=== PATIENT | male | born 1990 | race Caucasian/White ===

== ENCOUNTER 2017-01-11 20:56 | Emergency (ER) | payer SELFPAY ==
[~2017-01-11] VITALS: Ht 182.8 cm; Wt 102.1 kg
[~2017-01-11 20:56] MED LIST: BACTRIM DS 8001 TA1 PO; MOTRIN800 MG PO
== END 2017-01-11 22:04 | disposition home or self-care (01) ==
LOC: ED 20:56
DX: M77.9 Enthesopathy, unspecified (principal); F12.10 Cannabis abuse, uncomplicated

== ENCOUNTER 2017-02-27 23:58 | Emergency (ER) | payer MEDICAID | END 2017-02-28 01:36 | disposition home or self-care (01) | LOC: ED 23:58 | DX: S90.212A Contusion of left great toe with damage to nail, initial encounter (principal); W20.8XXA Other cause of strike by thrown, projected or falling object, initial encounter; Y93.89 Activity, other specified; Y92.89 Other specified places as the place of occurrence of the external cause; Y99.8 Other external cause status ==

== ENCOUNTER 2017-07-27 12:44 | Emergency (ER) | payer OTHER ==
[~2017-07-27] VITALS: Ht 182.8 cm; Wt 111.1 kg
[2017-07-27 13:10] LABS: BASO % 0.6 % (0.0-1.0); EOS % 0.8 % (1.0-4.0); HEMATOCRIT 42.3 % (42.0-52.0); HEMOGLOBIN 14.8 g/dl (14.0-18.0); LYMPH # 1.5 10*3/uL (1.3-4.4); LYMPH % 30.7 % (27.0-41.0); MEAN CELL VOLUME 87.2 fl (80.0-94.0); MEAN CORPUSCULAR HGB 30.5 pg (27.0-31.0); MONO # 0.3 10*3/uL (0.1-1.0); MONO % 6.6 % (3.0-9.0); NEUT # 2.9 10*3/uL (2.3-7.9); NEUT % 61.1 % (47.0-73.0); PLATELET COUNT AUTOMATED 220 10*3/uL (130-400); RED BLOOD COUNT 4.85 10*6/uL (4.50-5.90); RED CELL DISTRI WIDTH 11.5 % (0-14.5); WHITE BLOOD COUNT 4.7 10*3/uL (4.8-10.8)
[2017-07-27 13:21] LABS: ACT PARTIAL THROMBO TIME 27.1 SECONDS (20.8-31.5)
[2017-07-27 13:27] LABS: ALBUMIN 3.9 gm/dl (3.1-4.5); ALKALINE PHOSPHATASE 61 U/L (45-117); BUN 8 mg/dl (7-24); CHLORIDE 105 mmol/L (98-107); CREATININE 0.88 mg/dL (0.70-1.30); POTASSIUM 3.8 mmol/L (3.5-5.1); SGOT/AST 28 IU/L (3-35); SGPT/ALT 63 U/L (12-78); SODIUM 140 mmol/L (136-145); TOTAL PROTEIN 7.2 gm/dL (6.4-8.2)
[2017-07-27 13:33] LABS: TROPONIN I < 0.015 ng/ml (<0.045)
[2017-07-27 14:13] LABS: BILIRUBIN NEGATIVE (NEGATIVE); BLOOD NEGATIVE (NEGATIVE); CLARITY CLEAR (CLEAR); COLOR YELLOW (YELLOW); GLUCOSE NEGATIVE (NEGATIVE); KETONE NEGATIVE (NEGATIVE); LEUKO ESTERASE NEGATIVE (NEGATIVE); NITRITE NEGATIVE (NEGATIVE); SPECIFIC GRAVITY 1.015 (1.005-1.030); UROBILINOGEN 0.2 E.U./dl (0.2-1.0)
[2017-07-27 14:24] LABS: URINE AMPHETAMINES < 1000 (1000ng/ml); URINE BARBITURATES < 200 (200ng/ml); URINE BENZODIAZEPINES < 200 (200ng/ml); URINE CANNABINOIDS (THC) > 50 (50ng/ml); URINE COCAINE < 300 (300ng/ml); URINE METHADONE < 300 (300ng/ml); URINE OPIATES < 300 (300ng/ml)
[2017-07-27 14:28] LABS: URINE PHENCYCLIDINE < 25 (25ng/ml)
[2017-07-27 14:30] LABS: WBC 0-2 wbc/hpf (0-5)
== END 2017-07-27 14:44 | disposition home or self-care (01) ==
LOC: ED 12:44
PROVIDERS: Emergency Medicine
DX: R07.89 Other chest pain (principal)

== ENCOUNTER → 2019-02-08 | Outpatient (CLI) | payer OTHER ==
[~2019-02-08] MED LIST changes: +AUGMENTIN 875875 MG PO; +NORCO 5-325 TA1 EACH PO
== END | disposition home or self-care (01) ==
LOC: US 08:45
DX: R94.5 Abnormal results of liver function studies (principal); B19.20 Unspecified viral hepatitis C without hepatic coma

== ENCOUNTER 2019-02-12 16:34 | Emergency (ER) | payer OTHER ==
[~2019-02-12] VITALS: Ht 182.8 cm; Wt 111.1 kg
[~2019-02-12 16:34] MED LIST changes: -AUGMENTIN 875875 MG PO; -NORCO 5-325 TA1 EACH PO
[2019-02-12 17:21] LABS: BASO % 0.1 % (0.0-1.0); HEMATOCRIT 43.6 % (42.0-52.0); LYMPH # 1.2 10*3/uL (1.3-4.4); LYMPH % 11.5 % (27.0-41.0); MEAN CELL VOLUME 89.9 fl (80.0-94.0); MEAN CORPUSCULAR HGB 30.9 pg (27.0-31.0); MEAN CORPUSCULAR HGB CONC 34.4 g/dl (33.0-37.0); MONO # 0.7 10*3/uL (0.1-1.0); MONO % 7.1 % (3.0-9.0); NEUT # 8.4 10*3/uL (2.3-7.9); PLATELET COUNT AUTOMATED 230 10*3/uL (130-400); RED BLOOD COUNT 4.85 10*6/uL (4.50-5.90); RED CELL DISTRI WIDTH 11.7 % (0-14.5); WHITE BLOOD COUNT 10.4 10*3/uL (4.8-10.8)
[2019-02-12 17:35] LABS: ALKALINE PHOSPHATASE 75 U/L (45-117); BUN 10 mg/dl (7-24); CHLORIDE 102 mmol/L (98-107); CREATININE 1.17 mg/dL (0.70-1.30); POTASSIUM 3.9 mmol/L (3.5-5.1); SGOT/AST 34 IU/L (3-35); SGPT/ALT 72 U/L (12-78); SODIUM 138 mmol/L (136-145); TOTAL PROTEIN 7.7 gm/dL (6.4-8.2)
[2019-02-12] MEDS ORDERED: NORCO 5-325 TA1 EACH PO (18:21)
[2019-02-12] MEDS ORDERED: AUGMENTIN 875875 MG PO (18:21)
== END 2019-02-12 19:25 | disposition home or self-care (01) ==
LOC: ED 16:34
PROVIDERS: Physician Assistant
DX: L05.01 Pilonidal cyst with abscess (principal)

== ENCOUNTER 2019-06-16 12:37 | Emergency (ER) | payer OTHER ==
[~2019-06-16] VITALS: Ht 182.8 cm; Wt 106.6 kg
[~2019-06-16 12:37] MED LIST changes: +AUGMENTIN 875875 MG PO; +NORCO 5-325 TA1 EACH PO
[2019-06-16] MEDS ORDERED: ZOFRAN4 MG PO (14:30)
== END 2019-06-16 15:11 | disposition home or self-care (01) ==
LOC: ED 12:37
DX: A08.4 Viral intestinal infection, unspecified (principal); F12.90 Cannabis use, unspecified, uncomplicated; E66.9 Obesity, unspecified; Z68.34 Body mass index [BMI] 34.0-34.9, adult; Z79.899 Other long term (current) drug therapy

== ENCOUNTER 2020-01-05 07:59 | Emergency (ER) | payer BC, OTHER ==
[~2020-01-05] VITALS: Ht 187.9 cm; Wt 106.6 kg
[~2020-01-05 07:59] MED LIST changes: +ZOFRAN4 MG PO
== END 2020-01-05 09:19 | disposition home or self-care (01) ==
LOC: ED 07:59
DX: R07.89 Other chest pain (principal); R10.9 Unspecified abdominal pain; Z79.2 Long term (current) use of antibiotics; Z79.899 Other long term (current) drug therapy

== ENCOUNTER 2020-06-02 18:31 | Emergency (ER) | payer BC, OTHER ==
[~2020-06-02] VITALS: Ht 182.8 cm; Wt 122.5 kg
[2020-06-02] MEDS ORDERED: CEPHALEXIN500 M1 PO (18:45)
[2020-06-02] MEDS ORDERED: SEPTDS PO (18:45)
== END 2020-06-02 19:00 | disposition home or self-care (01) ==
LOC: ED 18:31
DX: L05.01 Pilonidal cyst with abscess (principal)

== ENCOUNTER 2020-08-09 10:07 | Inpatient (IN) | payer BC, OTHER ==
[~2020-08-09] VITALS: Ht 182.9 cm; Wt 130.3 kg
[~2020-08-09 10:07] MED LIST changes: +CEPHALEXIN500 M1 PO; +SEPTDS PO
[2020-08-09 10:21] VITALS: BP 142/89
[2020-08-09 11:09] LABS: BASO % 0.5 % (0.0-1.0); EOS # 0.1 10*3/uL (0.0-0.4); EOS % 1.2 % (1.0-4.0); HEMATOCRIT 45.6 % (42.0-52.0); LYMPH % 32.5 % (27.0-41.0); MEAN CELL VOLUME 86.2 fl (80.0-94.0); MEAN CORPUSCULAR HGB 29.9 pg (27.0-31.0); MEAN CORPUSCULAR HGB CONC 34.6 g/dl (33.0-37.0); MEAN PLATELET VOLUME 8.6 fl (9.6-12.3); MONO # 0.4 10*3/uL (0.1-1.0); MONO % 5.8 % (3.0-9.0); NEUT # 3.6 10*3/uL (2.3-7.9); NEUT % 59.2 % (47.0-73.0); PLATELET COUNT AUTOMATED 309 10*3/uL (130-400); RED BLOOD COUNT 5.29 10*6/uL (4.50-5.90); RED CELL DISTRI WIDTH 11.8 % (0-14.5)
[2020-08-09 11:22] LABS: ALBUMIN 3.8 gm/dl (3.1-4.5); ALKALINE PHOSPHATASE 100 U/L (45-117); BUN 14 mg/dl (7-24); CHLORIDE 106 mmol/L (98-107); CREATININE 0.97 mg/dL (0.70-1.30); POTASSIUM 3.9 mmol/L (3.5-5.1); SGOT/AST 41 IU/L (3-35); SGPT/ALT 105 U/L (12-78); SODIUM 142 mmol/L (136-145); TOTAL PROTEIN 7.7 gm/dL (6.4-8.2)
[2020-08-09 11:30] LABS: BILIRUBIN Negative (Negative); BLOOD Negative (Negative); CLARITY Clear (Clear); COLOR Yellow (Yellow); GLUCOSE Negative (Negative); KETONE Negative (Negative); LEUKO ESTERASE Negative (Negative); NITRITE Negative (Negative); PH 6.5 (4.5-8.0); SPECIFIC GRAVITY 1.025 (1.001-1.030)
[2020-08-09 11:38] LABS: RBC 0-2 rbc/hpf (0-2)
[2020-08-09 13:55] VITALS: BP 130/82
[2020-08-09 19:22] VITALS: BP 130/80
[2020-08-09 22:16] VITALS: BP 128/76
[2020-08-10 06:29] LABS: BASO % 0.4 % (0.0-1.0); EOS # 0.1 10*3/uL (0.0-0.4); EOS % 1.7 % (1.0-4.0); HEMATOCRIT 43.9 % (42.0-52.0); LYMPH # 2.2 10*3/uL (1.3-4.4); LYMPH % 43.4 % (27.0-41.0); MEAN CELL VOLUME 88.5 fl (80.0-94.0); MEAN CORPUSCULAR HGB 29.8 pg (27.0-31.0); MEAN CORPUSCULAR HGB CONC 33.7 g/dl (33.0-37.0); MEAN PLATELET VOLUME 9.1 fl (9.6-12.3); MONO # 0.3 10*3/uL (0.1-1.0); MONO % 6.6 % (3.0-9.0); NEUT # 2.4 10*3/uL (2.3-7.9); NEUT % 47.1 % (47.0-73.0); PLATELET COUNT AUTOMATED 253 10*3/uL (130-400); RED BLOOD COUNT 4.96 10*6/uL (4.50-5.90); RED CELL DISTRI WIDTH 12.1 % (0-14.5); WHITE BLOOD COUNT 5.2 10*3/uL (4.8-10.8)
[2020-08-10 06:39] VITALS: BP 132/80
[2020-08-10 06:58] LABS: ALBUMIN 3.3 gm/dl (3.1-4.5); BUN 12 mg/dl (7-24); CHLORIDE 104 mmol/L (98-107); CREATININE 0.95 mg/dL (0.70-1.30); POTASSIUM 3.9 mmol/L (3.5-5.1); SGOT/AST 41 IU/L (3-35); SGPT/ALT 94 U/L (12-78); SODIUM 144 mmol/L (136-145); TOTAL PROTEIN 7.1 gm/dL (6.4-8.2)
[2020-08-10 07:00] LABS: INTERNATIONAL NORM RATIO 0.9 (2.0-3.5)
[2020-08-10 07:09] LABS: ALKALINE PHOSPHATASE 87 U/L (45-117)
[2020-08-10 08:31] VITALS: BP 160/90
[2020-08-10 09:00] VITALS: BP 133/80
[2020-08-10] MEDS ORDERED: HYDROCHLOROTHIA25 M1 PO (09:09)
[2020-08-10] MEDS ORDERED: CITALOPRAM20 MG PO (09:10)
[2020-08-10 10:49] VITALS: BP 138/86
[2020-08-10 12:00] VITALS: BP 136/79
[2020-08-10 16:00] VITALS: BP 151/85
[2020-08-10] MEDS ORDERED: AUGMENTIN 875-875 MG PO (16:17)
== END 2020-08-10 18:23 | disposition home or self-care (01) | DRG 395 ==
LOC: ED 10:07 → EDHOLD 13:19 → 5E 13:19 → 4E 18:29 → EDHOLD 18:29 → 5E 08-10 08:25
PROVIDERS: Registered Nurse; Student in an Organized Health Care Education/Training Program; ADMIT Internal Medicine; ATTEND Internal Medicine
DX: K61.1 Rectal abscess (principal); R74.01 Elevation of levels of liver transaminase levels; B18.2 Chronic viral hepatitis C; K61.0 Anal abscess; R53.83 Other fatigue; E66.9 Obesity, unspecified; I10 Essential (primary) hypertension; F41.9 Anxiety disorder, unspecified; Z81.8 Family history of other mental and behavioral disorders; Z82.49 Family history of ischemic heart disease and other diseases of the circulatory system; Z82.3 Family history of stroke; Z68.39 Body mass index [BMI] 39.0-39.9, adult

== ENCOUNTER 2020-09-27 04:43 | Emergency (ER) | payer BC, OTHER ==
[~2020-09-27] VITALS: Ht 182.8 cm; Wt 113.4 kg
[~2020-09-27 04:43] MED LIST changes: +AUGMENTIN 875-875 MG PO; +CITALOPRAM20 MG PO; +HYDROCHLOROTHIA25 M1 PO
[2020-09-27 05:54] LABS: ALBUMIN 3.3 gm/dl (3.1-4.5); BUN 16 mg/dl (7-24); CHLORIDE 107 mmol/L (98-107); CREATININE 1.08 mg/dL (0.70-1.30); SGOT/AST 50 IU/L (3-35); SGPT/ALT 94 U/L (12-78); SODIUM 140 mmol/L (136-145); TOTAL PROTEIN 6.5 gm/dL (6.4-8.2)
[2020-09-27 05:55] LABS: ALKALINE PHOSPHATASE 99 U/L (45-117)
[2020-09-27 06:20] LABS: BASO % 0.7 % (0.0-1.0); EOS # 0.1 10*3/uL (0.0-0.4); EOS % 2.3 % (1.0-4.0); HEMATOCRIT 43.7 % (42.0-52.0); LYMPH % 47.7 % (27.0-41.0); MEAN CELL VOLUME 89.5 fl (80.0-94.0); MEAN CORPUSCULAR HGB 30.1 pg (27.0-31.0); MEAN CORPUSCULAR HGB CONC 33.6 g/dl (33.0-37.0); MEAN PLATELET VOLUME 9.3 fl (9.6-12.3); MONO # 0.3 10*3/uL (0.1-1.0); MONO % 5.8 % (3.0-9.0); NEUT # 1.8 10*3/uL (2.3-7.9); PLATELET COUNT AUTOMATED 235 10*3/uL (130-400); RED BLOOD COUNT 4.88 10*6/uL (4.50-5.90); RED CELL DISTRI WIDTH 11.8 % (0-14.5); WHITE BLOOD COUNT 4.3 10*3/uL (4.8-10.8)
[2020-09-27] MEDS ORDERED: ZOFRAN4 MG PO (06:24)
== END 2020-09-27 06:30 | disposition home or self-care (01) ==
LOC: ED 04:43
PROVIDERS: Internal Medicine
DX: B34.9 Viral infection, unspecified (principal); R94.5 Abnormal results of liver function studies; Z79.2 Long term (current) use of antibiotics; Z79.899 Other long term (current) drug therapy; Z20.828 Contact with and (suspected) exposure to other viral communicable diseases

== ENCOUNTER 2020-11-27 23:34 | Emergency (ER) | payer BC, OTHER ==
[~2020-11-27] VITALS: Ht 182.8 cm; Wt 113.4 kg
== END 2020-11-28 01:48 | disposition home or self-care (01) ==
LOC: ED 23:34
DX: F14.90 Cocaine use, unspecified, uncomplicated (principal); R20.2 Paresthesia of skin; Z79.2 Long term (current) use of antibiotics; Z79.899 Other long term (current) drug therapy

== ENCOUNTER 2022-01-04 12:46 | Emergency (ER) | payer BC, OTHER ==
[~2022-01-04] VITALS: Wt 131.5 kg
[2022-01-04] MEDS ORDERED: AMOX-CLAV 875-1 EACH PO (15:20)
[2022-01-04] MEDS ORDERED: HYDROCODONE-AC1 EAC1 PO (15:20)
[2022-01-04] MEDS ORDERED: IBUPROFEN600 MG PO (15:20)
== END 2022-01-04 15:33 | disposition home or self-care (01) ==
LOC: ED 12:46
DX: L05.91 Pilonidal cyst without abscess (principal); Z79.899 Other long term (current) drug therapy

== ENCOUNTER 2022-01-16 15:03 | Emergency (ER) | payer BC, OTHER ==
[~2022-01-16] VITALS: Ht 177.8 cm; Wt 122.5 kg
[~2022-01-16 15:03] MED LIST changes: +AMOX-CLAV 875-1 EACH PO; +HYDROCODONE-AC1 EAC1 PO; +IBUPROFEN600 MG PO
[2022-01-16] MEDS ORDERED: NYSTATIN CREAM15 GM T (16:27)
== END 2022-01-16 16:32 | disposition home or self-care (01) ==
LOC: ED 15:03
DX: L30.4 Erythema intertrigo (principal)

== ENCOUNTER 2022-01-25 14:54 | Emergency (ER) | payer BC, OTHER ==
[~2022-01-25 14:54] MED LIST changes: +NYSTATIN CREAM15 GM T
== END 2022-01-25 15:50 | disposition left against medical advice (07) ==
LOC: ED 14:54
DX: M79.675 Pain in left toe(s) (principal)

== ENCOUNTER 2022-03-07 17:49 | Emergency (ER) | payer BC, OTHER ==
[2022-03-07] MEDS ORDERED: HYDROCHLOROTHIA25 M1 PO (18:26)
[2022-03-07] MEDS ORDERED: OMEPRAZOLE MAGN20 MG PO (18:26)
[2022-03-07] MEDS ORDERED: NAPROSYN500 MG PO (19:54)
== END 2022-03-07 20:23 | disposition home or self-care (01) ==
LOC: ED 17:49
DX: S93.402A Sprain of unspecified ligament of left ankle, initial encounter (principal); Z79.899 Other long term (current) drug therapy; X50.1XXA Overexertion from prolonged static or awkward postures, initial encounter; Y93.89 Activity, other specified; Y92.89 Other specified places as the place of occurrence of the external cause; Y99.8 Other external cause status

== ENCOUNTER 2022-03-17 05:37 | Emergency (ER) | payer OTHER ==
[~2022-03-17 05:37] MED LIST changes: +NAPROSYN500 MG PO; +OMEPRAZOLE MAGN20 MG PO
[2022-03-17 07:48] LABS: BASO % 0.7 % (0.0-1.0); EOS # 0.2 10*3/uL (0.0-0.4); EOS % 2.6 % (1.0-4.0); HEMATOCRIT 43.3 % (42.0-52.0); LYMPH # 2.2 10*3/uL (1.3-4.4); LYMPH % 36.5 % (27.0-41.0); MEAN CELL VOLUME 86.6 fl (80.0-94.0); MEAN CORPUSCULAR HGB CONC 34.6 g/dl (33.0-37.0); MEAN PLATELET VOLUME 8.7 fl (9.6-12.3); MONO # 0.5 10*3/uL (0.1-1.0); MONO % 7.4 % (3.0-9.0); NEUT # 3.2 10*3/uL (2.3-7.9); NEUT % 52.3 % (47.0-73.0); PLATELET COUNT AUTOMATED 232 10*3/uL (130-400); WHITE BLOOD COUNT 6.1 10*3/uL (4.8-10.8)
[2022-03-17 08:03] LABS: ALKALINE PHOSPHATASE 90 U/L (45-117); BUN 14 mg/dl (7-24); CHLORIDE 110 mmol/L (98-107); CREATININE 1.05 mg/dL (0.70-1.30); LIPASE 189 U/L (73-393); POTASSIUM 4.1 mmol/L (3.5-5.1); SGOT/AST 41 IU/L (3-35); SGPT/ALT 96 U/L (12-78); SODIUM 145 mmol/L (136-145); TOTAL PROTEIN 7.3 gm/dL (6.4-8.2)
== END 2022-03-17 12:44 | disposition home or self-care (01) ==
LOC: ED 05:37
PROVIDERS: Emergency Medicine
DX: S39.011A Strain of muscle, fascia and tendon of abdomen, initial encounter (principal); X50.9XXA Other and unspecified overexertion or strenuous movements or postures, initial encounter; Y93.89 Activity, other specified; Y92.89 Other specified places as the place of occurrence of the external cause; Y99.8 Other external cause status

== ENCOUNTER 2022-04-27 11:23 | Emergency (ER) | payer BC, OTHER ==
[~2022-04-27] VITALS: Ht 180.3 cm; Wt 127.0 kg
[2022-04-27 12:31] LABS: BASO # 0.1 10*3/uL (0.0-0.1); BASO % 0.8 % (0.0-1.0); EOS # 0.2 10*3/uL (0.0-0.4); EOS % 3.8 % (1.0-4.0); HEMATOCRIT 47.1 % (42.0-52.0); LYMPH # 2.1 10*3/uL (1.3-4.4); LYMPH % 34.7 % (27.0-41.0); MEAN CELL VOLUME 87.9 fl (80.0-94.0); MEAN CORPUSCULAR HGB CONC 35.2 g/dl (33.0-37.0); MEAN PLATELET VOLUME 8.9 fl (9.6-12.3); MONO # 0.5 10*3/uL (0.1-1.0); MONO % 8.3 % (3.0-9.0); NEUT # 3.1 10*3/uL (2.3-7.9); NEUT % 52.1 % (47.0-73.0); PLATELET COUNT AUTOMATED 236 10*3/uL (130-400); RED BLOOD COUNT 5.36 10*6/uL (4.50-5.90); RED CELL DISTRI WIDTH 11.9 % (0-14.5)
[2022-04-27 12:48] LABS: ALKALINE PHOSPHATASE 103 U/L (45-117); BUN 16 mg/dl (7-24); CHLORIDE 107 mmol/L (98-107); CREATININE 0.95 mg/dL (0.70-1.30); LIPASE 168 U/L (73-393); SGOT/AST 56 IU/L (3-35); SGPT/ALT 115 U/L (12-78); SODIUM 141 mmol/L (136-145); TOTAL PROTEIN 7.5 gm/dL (6.4-8.2)
[2022-04-27] MEDS ORDERED: CEPHALEXIN500 M1 PO (15:58)
[2022-04-27] MEDS ORDERED: SEPTDS PO (15:58)
== END 2022-04-27 16:20 | disposition home or self-care (01) ==
LOC: ED 11:23
PROVIDERS: Physician Assistant
DX: L03.316 Cellulitis of umbilicus (principal); Z79.899 Other long term (current) drug therapy

== ENCOUNTER 2022-05-20 14:01 | Emergency (ER) | payer BC, OTHER ==
[~2022-05-20] VITALS: Ht 180.3 cm; Wt 124.7 kg
[2022-05-20] MEDS ORDERED: VIBRAMYCIN100 MG PO (16:24)
[2022-05-20] MEDS ORDERED: IBUPROFEN600 MG PO (16:24)
== END 2022-05-20 16:40 | disposition home or self-care (01) ==
LOC: ED 14:01
DX: L08.82 Omphalitis not of newborn (principal); Z79.2 Long term (current) use of antibiotics; Z79.899 Other long term (current) drug therapy

== ENCOUNTER 2022-06-19 16:42 | Emergency (ER) | payer BC, OTHER ==
[~2022-06-19] VITALS: Ht 177.8 cm; Wt 131.5 kg
[~2022-06-19 16:42] MED LIST changes: +VIBRAMYCIN100 MG PO
[2022-06-19 17:23] LABS: BASO % 0.6 % (0.0-1.0); EOS # 0.2 10*3/uL (0.0-0.4); EOS % 2.3 % (1.0-4.0); LYMPH # 1.8 10*3/uL (1.3-4.4); LYMPH % 25.6 % (27.0-41.0); MEAN CELL VOLUME 86.5 fl (80.0-94.0); MEAN CORPUSCULAR HGB 29.9 pg (27.0-31.0); MEAN CORPUSCULAR HGB CONC 34.6 g/dl (33.0-37.0); MEAN PLATELET VOLUME 8.6 fl (9.6-12.3); MONO # 0.5 10*3/uL (0.1-1.0); MONO % 7.1 % (3.0-9.0); NEUT # 4.5 10*3/uL (2.3-7.9); PLATELET COUNT AUTOMATED 272 10*3/uL (130-400); RED BLOOD COUNT 5.78 10*6/uL (4.50-5.90); RED CELL DISTRI WIDTH 11.9 % (0-14.5)
[2022-06-19 17:49] LABS: ALKALINE PHOSPHATASE 110 U/L (45-117); BUN 18 mg/dl (7-24); CHLORIDE 106 mmol/L (98-107); CREATININE 0.98 mg/dL (0.70-1.30); LIPASE 392 U/L (73-393); POTASSIUM 3.5 mmol/L (3.5-5.1); SGOT/AST 45 IU/L (3-35); SGPT/ALT 109 U/L (12-78); SODIUM 138 mmol/L (136-145); TOTAL PROTEIN 8.1 gm/dL (6.4-8.2)
== END 2022-06-19 22:28 | disposition home or self-care (01) ==
LOC: ED 16:42
PROVIDERS: Emergency Medicine
DX: R10.33 Periumbilical pain (principal); R74.01 Elevation of levels of liver transaminase levels; Z79.899 Other long term (current) drug therapy

== ENCOUNTER 2022-12-22 15:16 | Emergency (ER) | payer BC, OTHER ==
[~2022-12-22] VITALS: Ht 177.8 cm; Wt 129.3 kg
[2022-12-22] MEDS ORDERED: VIBRA-TAB100 MG PO (18:15)
[2022-12-22] MEDS ORDERED: HYDROCODONE-AC1 EAC1 PO (18:16)
== END 2022-12-22 18:23 | disposition home or self-care (01) ==
LOC: ED 15:16
DX: L05.91 Pilonidal cyst without abscess (principal); M54.50 Low back pain, unspecified; E66.9 Obesity, unspecified

== ENCOUNTER 2023-01-06 09:26 | Emergency (ER) | payer BC, OTHER ==
[~2023-01-06] VITALS: Ht 177.8 cm; Wt 133.8 kg
[~2023-01-06 09:26] MED LIST changes: +VIBRA-TAB100 MG PO
[2023-01-06] MEDS ORDERED: HYDROCODONE-AC1 EAC1 PO (11:00)
== END 2023-01-06 11:04 | disposition home or self-care (01) ==
LOC: ED 09:26
DX: L05.91 Pilonidal cyst without abscess (principal); Z98.890 Other specified postprocedural states

== ENCOUNTER 2023-02-10 05:36 | Emergency (ER) | payer BC, OTHER ==
[~2023-02-10] VITALS: Ht 182.8 cm; Wt 127.0 kg
== END 2023-02-10 06:37 | disposition left against medical advice (07) ==
LOC: ED 05:36
DX: L05.01 Pilonidal cyst with abscess (principal); I10 Essential (primary) hypertension; F41.9 Anxiety disorder, unspecified; F12.90 Cannabis use, unspecified, uncomplicated; Z98.890 Other specified postprocedural states

== ENCOUNTER 2023-05-14 16:23 | Emergency (ER) | payer BC ==
[~2023-05-14] VITALS: Ht 177.8 cm; Wt 133.8 kg
[2023-05-14] MEDS ORDERED: HYDROCODONE-AC1 EAC1 PO (17:56)
[2023-05-14] MEDS ORDERED: VIBRAMYCIN100 MG PO (17:56)
== END 2023-05-14 18:02 | disposition home or self-care (01) ==
LOC: ED 16:23
DX: L05.01 Pilonidal cyst with abscess (principal); Z98.890 Other specified postprocedural states

== ENCOUNTER → 2023-09-22 | Outpatient (CLI) | payer BC | END | disposition home or self-care (01) | LOC: RAD 07:54 | PROVIDERS: ATTEND Student in an Organized Health Care Education/Training Program | DX: S69.91XA Unspecified injury of right wrist, hand and finger(s), initial encounter (principal); M79.89 Other specified soft tissue disorders; M19.041 Primary osteoarthritis, right hand; M25.742 Osteophyte, left hand; X58.XXXA Exposure to other specified factors, initial encounter; Y93.89 Activity, other specified; Y92.89 Other specified places as the place of occurrence of the external cause; Y99.8 Other external cause status ==

== ENCOUNTER 2024-01-19 14:56 | Emergency (ER) | payer OTHER ==
[~2024-01-19] VITALS: Ht 177.8 cm; Wt 136.1 kg
[2024-01-19] MEDS ORDERED: SODIUM CHLORIDE 0.9% 1,000 ML IV ONE (15:10)
[2024-01-19 15:21] LABS: BASO % 0.5 % (0.0-1.0); EOS # 0.1 10*3/uL (0.0-0.4); EOS % 1.9 % (1.0-4.0); HEMATOCRIT 45.8 % (42.0-52.0); LYMPH % 33.8 % (27.0-41.0); MEAN CELL VOLUME 87.7 fl (80.0-94.0); MEAN CORPUSCULAR HGB 29.5 pg (27.0-31.0); MEAN CORPUSCULAR HGB CONC 33.6 g/dl (33.0-37.0); MEAN PLATELET VOLUME 9.1 fl (9.6-12.3); MONO # 0.3 10*3/uL (0.1-1.0); MONO % 5.5 % (3.0-9.0); NEUT # 3.4 10*3/uL (2.3-7.9); NEUT % 58.1 % (47.0-73.0); PLATELET COUNT AUTOMATED 264 10*3/uL (130-400); RED BLOOD COUNT 5.22 10*6/uL (4.50-5.90); RED CELL DISTRI WIDTH 11.8 % (0-14.5); WHITE BLOOD COUNT 5.8 10*3/uL (4.8-10.8)
[2024-01-19 15:44] LABS: ALKALINE PHOSPHATASE 69 U/L (46-116); BUN 11 mg/dl (9-23); CHLORIDE 102 mmol/L (98-107); CPK 173 U/L (34-171); POTASSIUM 3.2 mmol/L (3.4-5.1); SGPT/ALT 26 U/L (5-49); TOTAL PROTEIN 7.3 gm/dL (6.0-8.0)
[2024-01-19] MEDS ORDERED: POTASSIUM CHLORIDE 20 MEQ TAB PO ONE (16:40)
== END 2024-01-19 16:45 | disposition home or self-care (01) ==
LOC: ED 14:56
PROVIDERS: Nurse Practitioner Family
DX: R55 Syncope and collapse (principal); E87.6 Hypokalemia; F41.9 Anxiety disorder, unspecified; I10 Essential (primary) hypertension; F12.90 Cannabis use, unspecified, uncomplicated; Z98.890 Other specified postprocedural states

== ENCOUNTER 2024-11-12 05:41 | Emergency (ER) | payer BC ==
[~2024-11-12] VITALS: Ht 180.3 cm; Wt 136.1 kg
[2024-11-12] MEDS ORDERED: MELOXICAM15 MG PO (08:35)
== END 2024-11-12 08:47 | disposition home or self-care (01) ==
LOC: ED 05:41
DX: M79.605 Pain in left leg (principal); M79.604 Pain in right leg; R23.8 Other skin changes; L53.9 Erythematous condition, unspecified; Z98.890 Other specified postprocedural states

== ENCOUNTER → 2025-05-28 | Outpatient (CLI) | payer BC ==
[~2025-05-28] MED LIST changes: +MELOXICAM15 MG PO
== END ==
LOC: CARD 00:07
PROVIDERS: ATTEND Family Medicine
DX: R00.2 Palpitations (principal); R94.31 Abnormal electrocardiogram [ECG] [EKG]